=== PATIENT | female | born 1960 | race Caucasian/White ===

== ENCOUNTER 2021-05-24 23:38 | Emergency (ER) | payer OTHER ==
[~2021-05-24] VITALS: Ht 167.6 cm; Wt 83.9 kg
[~2021-05-24 23:38] MED LIST: NORVASC10 MG
[2021-05-25] MEDS ORDERED: VASOTEC2.5 MG (00:09)
[2021-05-25] MEDS ORDERED: LEXAPRO5 MG (00:10)
[2021-05-25] MEDS ORDERED: XANAX1 MG (00:10)
[2021-05-25] MEDS ORDERED: YUVAFEM10 MCG (00:10)
[2021-05-25] MEDS ORDERED: ULTRAM50 MG PO (02:19)
== END 2021-05-25 02:34 | disposition home or self-care (01) ==
LOC: ER 23:38
DX: M25.561 Pain in right knee (principal); W01.0XXA Fall on same level from slipping, tripping and stumbling without subsequent striking against object, initial encounter; Y93.9 Activity, unspecified; Y92.9 Unspecified place or not applicable; Y99.9 Unspecified external cause status; I10 Essential (primary) hypertension; E03.9 Hypothyroidism, unspecified; Z88.6 Allergy status to analgesic agent